=== PATIENT | female | born 1950 | race Caucasian/White ===

== ENCOUNTER 2017-08-24 07:40 | Inpatient (IN) | payer MEDICARE, BC ==
--- NOTE | 2017-08-24 08:18 | EDM.PDOC ---
ED HPI GENERAL MEDICAL PROBLEM - General Chief Complaint: Abdominal Pain Stated Complaint: Abdominal pain Time Seen by Provider: 08/24/17 07:50 Source of Information: Reports: Patient History Limitations: Reports: No Limitations - History of Present Illness INITIAL COMMENTS - FREE TEXT/NARRATIVE: Patient is a 66-year-old female who states that yesterday she developed some left-sided discomfort but around 9:00 PM started with some pain went to sleep and woke up this morning with increased pain patient states previous history of diverticulitis says it feels the same worse with movement and better with rest he denies fever. 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 (see below) (Took four stool softeners) Left Middle Abdominal Pain Score (Numeric/FACES): 10 - Related Data Allergies Allergy/AdvReac Type Severity Reaction Status Date / Time Antihistamines - Alkylamine Allergy Agitation Verified 08/24/17 07:41 Antihistamines - Ethanolamine Allergy Agitation Verified 08/24/17 07:41 Antihistamines - Allergy Agitation Verified 08/24/17 07:41 Ethylenediamine Antihistamines - Piperazine Allergy Agitation Verified 08/24/17 07:41 Antihistamines - Piperidine Allergy Agitation Verified 08/24/17 07:41 Home Meds: Home Meds Pregabalin [Lyrica] 100 mg PO TID 11/05/13 [History] Venlafaxine [Effexor] 300 mg PO DAILY 11/05/13 [History] amLODIPine/Benazepril [Lotrel 5-10 MG] 1 tab PO DAILY 11/05/13 [History] tiZANidine [Zanaflex] 4 mg PO BID 11/05/13 [History] Celecoxib [Celebrex] 200 mg PO DAILY PRN 12/29/13 [History] Cholecalciferol (Vitamin D3) [Vitamin D3] 1,000 units PO DAILY 12/29/13 [History ] Modafinil [Provigil] 100 mg PO DAILY PRN 12/29/13 [History] Vitamin B Complex 1 cap PO DAILY 11/04/16 [History] Sennosides [Senna] 2 tab PO BEDTIME 08/24/17 [History] Past Medical History HEENT History: Reports: Other (See Below) Other HEENT History: Wears glasses Cardiovascular History: Reports: Hypertension Gastrointestinal History: Reports: Bowel Obstruction, Hemorrhoids Musculoskeletal History: Reports: Osteoarthritis Neurological History: Reports: MS Other Neuro History: Diagnosed in 1999 Psychiatric History: Reports: Depression Hematologic History: Reports: Blood Transfusion(s) Oncologic (Cancer) History: Reports: Cervix - Infectious Disease History Infectious Disease History: Reports: Chicken Pox, Measles, Mumps - Past Surgical History Female Surgical History: Reports: Section, Hysterectomy Social & Family History - Tobacco Use Smoking Status *Q: Former Smoker Years of Tobacco use: 20 Packs/Tins Daily: 0.2 Used Tobacco, but Quit: Yes Month Tobacco Last Used: in 1991 Second Hand Smoke Exposure: No - Caffeine Use Caffeine Use: Reports: Coffee Caffeine Use Comment: 2 cups daily - Alcohol Use Days Per Week of Alcohol Use: 3 Number of Drinks Per Day: 1 Total Drinks Per Week: 3 - Recreational Drug Use Recreational Drug Use: No ED ROS GENERAL - Review of Systems Review Of Systems: See Below Constitutional: Reports: Weakness (Secondary to MS) HEENT: Reports: No Symptoms Respiratory: Reports: No Symptoms Cardiovascular: Reports: No Symptoms Endocrine: Reports: No Symptoms GI/Abdominal: Reports: Abdominal Pain, Constipation : Reports: No Symptoms Musculoskeletal: Reports: No Symptoms Skin: Reports: No Symptoms Neurological: Reports: No Symptoms Psychiatric: Reports: No Symptoms Hematologic/Lymphatic: Reports: No Symptoms Immunologic: Reports: No Symptoms ED EXAM, GI/ABD - Physical Exam Exam: See Below Exam Limited By: No Limitations General Appearance: Alert, WD/WN, Moderate Distress Eyes: Bilateral: Normal Appearance, EOMI Ears: Normal External Exam, Normal Canal, Hearing Grossly Normal, Normal TMs Nose: Normal Inspection, Normal Mucosa, No Blood Throat/Mouth: Normal Inspection, Normal Lips, Normal Teeth, Normal Gums, Normal Oropharynx, Normal Voice, No Airway Compromise Head: Atraumatic, Normocephalic Neck: Normal Inspection, Supple, Non-Tender, Full Range of Motion Respiratory/Chest: No Respiratory Distress, Lungs Clear, Normal Breath Sounds, No Accessory Muscle Use, Chest Non-Tender Cardiovascular: Normal Peripheral Pulses, Regular Rate, Rhythm, No Edema, No Gallop, No JVD, No Murmur, No Rub GI/Abdominal Exam: Normal Bowel Sounds, Soft, Tender (Female) Exam: Deferred Rectal (Female) Exam: Deferred Back Exam: Normal Inspection, Full Range of Motion, NT Extremities: Normal Inspection, Normal Range of Motion, Non-Tender, Normal Capillary Refill, No Pedal Edema Neurological: Alert, Oriented, CN II-XII Intact, Abnormal Gait Psychiatric: Normal Affect, Normal Mood Skin Exam: Warm, Dry, Intact, Normal Color, No Rash Lymphatic: No Adenopathy Course - Vital Signs Last Recorded V/S: Last Vital Signs Temp 98.1 F 08/24/17 09:35 Pulse 88 08/24/17 09:35 Resp 18 08/24/17 09:35 BP 155/87 H 08/24/17 09:35 Pulse Ox 98 08/24/17 09:35 - Orders/Labs/Meds Orders: Active Orders 24 hr Category Date Time Status Abdomen Pelvis w Cont [CT] Stat Exams 08/24/17 08:24 Taken Labs: Laboratory Tests 08/24/17 08/24/17 Range/Units 07:55 07:55 WBC 7.8 (4.0-10.2) K/uL RBC 4.15 (3.77-5.09) M/uL Hgb 13.3 (11.7-15.5) g/dL Hct 38.7 (34.0-46.0) % MCV 93.3 (84.0-98.0) fL MCH 32.0 (28.2-33.3) pg MCHC 34.4 (31.7-36.0) g/dL RDW 13.0 (11.2-14.1) % Plt Count 177 D (150-350) K/uL Neut % (Auto) 80.9 H (45.0-80.0) % Lymph % (Auto) 10.6 (10.0-50.0) % [place] % (Auto) 7.2 (2.0-14.0) % Eos % (Auto) 0.9 (0.0-5.0) % Baso % (Auto) 0.4 (0.0-2.0) % Neut # (Auto) 6.29 (1.40-7.00) K/uL Lymph # (Auto) 0.82 (0.50-3.50) K/uL [place] # (Auto) 0.56 (0.00-1.00) K/uL Eos # (Auto) 0.07 (0.00-0.50) K/uL Baso # (Auto) 0.03 (0.00-0.20) K/uL Sodium 138 (136-145) mmol/L Potassium 3.8 (3.5-5.1) mmol/L Chloride 104 (98-107) mmol/L Carbon Dioxide 24.1 (21.0-32.0) mmol/L BUN 18 (7-18) mg/dL Creatinine 0.84 (0.51-1.17) mg/dL Est Cr Clr Drug Dosing 56.12 mL/min Estimated GFR (MDRD) > 60 mL/min Glucose 115 H (74-106) mg/dL Calcium 8.5 (8.5-10.1) mg/dL Total Bilirubin 0.5 (0.2-1.0) mg/dL AST 20 (15-37) U/L ALT 34 (12-78) U/L Alkaline Phosphatase 98 (46-116) IU/L Total Protein 6.9 (6.4-8.2) g/dL Albumin 3.6 (3.4-5.0) g/dL Meds: Medications Discontinued Medications Generic Name Dose Route Start Last Admin Trade Name Freq PRN Reason Stop Dose Admin Iopamidol 100 ml 08/24/17 08:56 08/24/17 10:24 Isovue-300 (61%) IVPUSH 08/24/17 08:57 100 ml ONETIME ONE Administration Departure - Departure Time of Disposition: 11:13 Disposition: Admitted As Inpatient 65 Condition: Fair Clinical Impression: Diverticulitis large intestine - Discharge Information Referrals: Laisha Quiroz NP [Primary Care Provider] - Forms: ED Department Discharge Care Plan Goals: Patient will be admitted for IV antibiotics and pain control Use ER note as admission H&P - Problem List & Annotations (1) Diverticulosis of colon SNOMED Code(s): 822873946 Code(s): K57.30 - DVRTCLOS OF LG INT W/O PERFORATION OR ABSCESS W/O BLEEDING Status: Acute Current Visit: Yes Annotation/Comment:: CT scan of abdomen revealed diverticulosis of descending colon at this time patient will be admitted for IV antibiotics radiologist I commended the patient should be follow-up with a colonoscopy secondary to edema seen on CT scan - Problem List Review Problem List Initiated/Reviewed/Updated: Yes - My Orders Last 24 Hours: My Active Orders 08/24/17 08:24 Abdomen Pelvis w Cont [CT] Stat - Assessment/Plan Admission H&P: Please use this note as an admission H&P Last 24 Hours: My Active Orders 08/24/17 08:24 Abdomen Pelvis w Cont [CT] Stat Assessment:: Diverticulitis of descending colon Plan: Patient will be admitted for pain control and IV antibiotics Please use ER note as admitting H&P
[2017-08-24 08:26] LABS: CHLORIDE,CL 104 mmol/L (98-107); SODIUM,NA 138 mmol/L (136-145)
[2017-08-24] MEDS ORDERED: Iopamidol 612 MG/ML 100 ML Bottle IVPUSH ONE (08:56)
[2017-08-24] MEDS ORDERED: MODAFINIL 100 MG PO PRN (11:54)
[2017-08-24] MEDS ORDERED: metroNIDAZOLE/Normal Saline 500 MG in Premix Bag 1 BAG IV SCH (12:00)
[2017-08-24] MEDS ORDERED: HYDROmorphone 1 MG/ML Syringe IVPUSH PRN (12:14)
[2017-08-24] MEDS: Sodium Chloride 0.9% 1,000 ML IV SCH ×2 (12:29→22:19)
[2017-08-24] MEDS: Ciprofloxacin in D5W 400 MG in Premix Bag 1 BAG IV SCH ×4 (12:35→20:04)
[2017-08-24] MEDS: Pregabalin 25 MG Cap PO SCH ×2 (12:42→17:51)
[2017-08-24] MEDS: Enoxaparin 40 MG/0.4 ML Syringe SUBCUT SCH (12:43)
[2017-08-24] MEDS: metroNIDAZOLE/Normal Saline 500 MG in Premix Bag 1 BAG IV SCH ×2 (13:50→22:18)
[2017-08-24] MEDS: Acetaminophen 325 MG Tab PO PRN ×2 (16:29→20:05)
[2017-08-24] MEDS ORDERED: Celecoxib 100 MG Cap PO PRN (18:00)
[2017-08-24] MEDS ORDERED: Montelukast 10 MG Tab PO SCH ×2 (18:15→20:00)
[2017-08-24] MEDS: Sennosides 8.6 MG Tab PO SCH ×2 (20:05→20:11)
[2017-08-25] MEDS: Acetaminophen 325 MG Tab PO PRN ×2 (01:43→05:12)
[2017-08-25] MEDS: metroNIDAZOLE/Normal Saline 500 MG in Premix Bag 1 BAG IV SCH (05:13)
[2017-08-25] MEDS: Sodium Chloride 0.9% 1,000 ML IV SCH (05:13)
[2017-08-25] MEDS: Pregabalin 25 MG Cap PO SCH ×2 (07:52→11:28)
[2017-08-25] MEDS: Enoxaparin 40 MG/0.4 ML Syringe SUBCUT SCH (07:53)
[2017-08-25] MEDS: Ciprofloxacin in D5W 400 MG in Premix Bag 1 BAG IV SCH ×2 (07:54)
[2017-08-25] MEDS ORDERED: Benazepril 10 MG Tab PO SCH (08:00)
[2017-08-25] MEDS ORDERED: Cholecalciferol (Vitamin D3) 1,000 Unit Tab PO SCH (08:00)
[2017-08-25] MEDS ORDERED: VITAMIN B COMPLEX PO SCH (08:00)
[2017-08-25] MEDS ORDERED: Venlafaxine 75 MG Cap.ER PO SCH (08:00)
[2017-08-25] MEDS ORDERED: amLODIPine 5 MG Tab PO SCH (08:00)
[2017-08-25 08:03] LABS: CHLORIDE,CL 107 mmol/L (98-107); SODIUM,NA 140 mmol/L (136-145)
[2017-08-25 11:28] VITALS: BP 120/72
--- NOTE | 2017-08-25 12:49 | PCM.DCSUM1 ---
Discharge Summary - Hospital Course Free Text/Narrative:: Patient is a 66-year-old who was admitted to the hospital with left lower quadrant pain CT showed diverticulitis at this point patient was admitted and treated with IV antibiotics today patient feels much better less pain afebrile and would like to go home - Discharge Data Discharge Date: 08/25/17 Discharge Disposition: Home, Self-Care 01 Condition: Good - Discharge Diagnosis/Problem(s) (1) Diverticulosis of colon SNOMED Code(s): 718186289 ICD Code: K57.30 - DVRTCLOS OF LG INT W/O PERFORATION OR ABSCESS W/O BLEEDING Status: Acute Current Visit: Yes Problem Details: CT scan of abdomen revealed diverticulosis of descending colon at this time patient will be admitted for IV antibiotics radiologist I commended the patient should be follow-up with a colonoscopy secondary to edema seen on CT scan 08/25/17 patient seen today doing much better would like to go home white count down to 4.7 I will discharge her home patient will be followed by her private M.D. and should have a colonoscopy in 1-2 weeks as recommended by radiology - Patient Summary/Data Recommended Follow-up Testing/Procedures: Colonoscopy in the next 2 weeks Hospital Course: Patient was admitted IV antibiotics started patient responded appropriately to IV antibiotics currently pain-free afebrile will discharge home - Patient Instructions Diet: Heart Healthy Diet Activity: As Tolerated Driving: May Drive Today Showering/Bathing: May Shower Notify Provider of: Fever, Increased Pain, Nausea and/or Vomiting - Discharge Plan Prescriptions/Med Rec: Ciprofloxacin HCl [Cipro] 500 mg PO BID 5 Days #14 tablet metroNIDAZOLE [Flagyl] 500 mg PO Q8H 7 Days #20 tablet Home Medications: Home Meds Pregabalin [Lyrica] 100 mg PO TID 11/05/13 [History] Venlafaxine [Effexor] 300 mg PO DAILY 11/05/13 [History] amLODIPine/Benazepril [Lotrel 5-10 MG] 1 tab PO DAILY 11/05/13 [History] tiZANidine [Zanaflex] 4 mg PO BID 11/05/13 [History] Celecoxib [Celebrex] 200 mg PO DAILY PRN 12/29/13 [History] Cholecalciferol (Vitamin D3) [Vitamin D3] 1,000 units PO DAILY 12/29/13 [History ] Modafinil [Provigil] 100 mg PO DAILY PRN 12/29/13 [History] Vitamin B Complex 1 cap PO DAILY 08/24/16 [History] Sennosides [Senna] 2 tab PO BEDTIME 08/24/17 [History] Ciprofloxacin HCl [Cipro] 500 mg PO BID 5 Days #14 tablet 08/25/17 [Rx] metroNIDAZOLE [Flagyl] 500 mg PO Q8H 7 Days #20 tablet 08/25/17 [Rx] Forms: ED Department Discharge Referrals: Laisha Quiroz NP [Primary Care Provider] - - Discharge Summary/Plan Comment DC Time >30 min.: No Discharge Summary/Plan Comment: Patient is a normocephalic atraumatic female 66-year-old who was admitted with diverticulitis started on antibiotic doing well would like to go home Physical exam normocephalic atraumatic eyes PERRLA wears glasses throat clear neck supple chest symmetrical expansion clear to auscultation no Rales rhonchi or wheezing cardiovascular regular rate and rhythm no murmurs no gallops abdomen soft tender to palpation right lower quadrant much improved since admission good bowel sounds no masses extremities full range of motion no edema no cyanosis no clubbing Assessment diverticulitis Plan we will DC her home on Cipro 500 twice a day and Flagyl 500 3 times a day both for 10 days follow-up with primary this week please schedule her for follow -up colonoscopy Send discharge summary to primary - Patient Data Vitals - Most Recent: Last Vital Signs Temp 98.4 F 08/25/17 11:28 Pulse 93 08/25/17 11:28 Resp 15 08/25/17 11:28 BP 120/72 08/25/17 11:28 Pulse Ox 97 08/25/17 11:28 Weight - Most Recent: 177 lb 8 oz I&O - Last 24 hours: Intake & Output 08/24/17 08/25/17 08/25/17 23:59 06:59 14:59 Intake Total 1140 Balance 1140 Lab Results - Last 24 hrs: Laboratory Results - last 24 hr 08/25/17 08/25/17 Range/Units 07:40 07:45 WBC 4.8 (4.0-10.2) K/uL RBC 3.76 L (3.77-5.09) M/uL Hgb 12.1 (11.7-15.5) g/dL Hct 35.4 (34.0-46.0) % MCV 94.1 (84.0-98.0) fL MCH 32.2 (28.2-33.3) pg MCHC 34.2 (31.7-36.0) g/dL RDW 13.0 (11.2-14.1) % Plt Count 163 (150-350) K/uL Neut % (Auto) 66.1 (45.0-80.0) % Lymph % (Auto) 22.2 (10.0-50.0) % [place] % (Auto) 9.4 (2.0-14.0) % Eos % (Auto) 1.9 (0.0-5.0) % Baso % (Auto) 0.4 (0.0-2.0) % Neut # (Auto) 3.15 (1.40-7.00) K/uL Lymph # (Auto) 1.06 (0.50-3.50) K/uL [place] # (Auto) 0.45 (0.00-1.00) K/uL Eos # (Auto) 0.09 (0.00-0.50) K/uL Baso # (Auto) 0.02 (0.00-0.20) K/uL Sodium 140 (136-145) mmol/L Potassium 3.6 (3.5-5.1) mmol/L Chloride 107 (98-107) mmol/L Carbon Dioxide 24.0 (21.0-32.0) mmol/L BUN 7 (7-18) mg/dL Creatinine 0.65 (0.51-1.17) mg/dL Est Cr Clr Drug Dosing 72.52 mL/min Estimated GFR (MDRD) > 60 mL/min Glucose 100 (74-106) mg/dL Calcium 7.7 L (8.5-10.1) mg/dL Med Orders - Current: Current Medications Acetaminophen (Tylenol) 650 mg PO Q4H PRN PRN Reason: Pain Last Admin: 08/25/17 05:12 Dose: 650 mg Amlodipine Besylate (Norvasc) 5 mg PO DAILY [facility] Last Admin: 08/25/17 07:52 Dose: 5 mg Benazepril HCl (Lotensin) 10 mg PO DAILY [facility] Last Admin: 08/25/17 07:53 Dose: 10 mg Celecoxib (Celebrex) 200 mg PO DAILY PRN PRN Reason: PAIN Cholecalciferol (Vitamin D3) 1,000 units PO DAILY [facility] Last Admin: 08/25/17 07:53 Dose: 1,000 units Enoxaparin Sodium (Lovenox) 40 mg SUBCUT DAILY [facility] Last Admin: 08/25/17 07:53 Dose: 40 mg Hydromorphone HCl (Dilaudid) 1 mg IVPUSH Q4H PRN PRN Reason: Pain Last Admin: 08/25/17 01:42 LEAD PRINTER 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: 1 mg Ciprofloxacin/Dextrose 400 mg/ (Premix) 200 mls @ 200 mls/hr IV Q12HR [facility] Last Admin: 08/25/17 07:54 Dose: 200 mls/hr Sodium Chloride (Normal Saline) 1,000 mls @ 150 mls/hr IV ASDIRECTED [facility] Last Admin: 08/25/17 05:13 Dose: 150 mls/hr Metronidazole 500 mg/ Premix 100 mls @ 100 mls/hr IV Q8H [facility] Last Admin: 08/25/17 05:13 Dose: 100 mls/hr Montelukast Sodium (Singulair) 10 mg PO BEDTIME [facility] Last Admin: 08/24/17 20:05 Dose: 10 mg Pregabalin (Lyrica) 100 mg PO TID [facility] Last Admin: 08/25/17 11:28 Dose: 100 mg Senna (Senna) 17.2 mg PO BEDTIME [facility] Last Admin: 08/24/17 20:11 Dose: Not Given Venlafaxine HCl (Effexor Xr) 300 mg PO DAILY [facility] Last Admin: 08/25/17 07:51 Dose: 300 mg Discontinued Medications Metronidazole 500 mg/ Premix 100 mls @ 100 mls/hr IV Q8H [facility] Last Admin: 08/24/17 12:40 Dose: Not Given Iopamidol (Isovue-300 (61%)) 100 ml IVPUSH ONETIME ONE Stop: 08/24/17 08:57 Last Admin: 08/24/17 10:24 Dose: 100 ml Montelukast Sodium (Singulair) 10 mg PO BEDTIME [facility] Last Admin: 08/24/17 18:29 Dose: Not Given Non-Formulary Medication (Modafinil) 100 mg PO DAILY PRN PRN Reason: Fatiuge Non-Formulary Medication (Vitamin B Complex [Vitamin B Complex]) 1 cap PO DAILY ROSE MARIE - Exam General: Reports: Alert, Oriented HEENT: Reports: Pupils Equal, Pupils Reactive, EOMI, Mucous Membr. Moist/[place] Neck: Reports: Supple Lungs: Reports: Clear to Auscultation, Normal Respiratory Effort Cardiovascular: Reports: Regular Rate, Regular Rhythm GI/Abdominal Exam: Soft, Rebound, Tender (Female) Exam: Deferred Rectal (Female) Exam: Deferred Back Exam: Reports: Normal Inspection, Full Range of Motion Extremities: Normal Inspection, Normal Range of Motion, Non-Tender, No Pedal Edema, Normal Capillary Refill Skin: Reports: Warm, Dry, Intact Psy/Mental Status: Reports: Alert, Normal Affect, Normal Mood *Q Meaningful Use (DIS) - VTE *Q VTE Criteria *Q: - Stroke *Q Stroke Criteria *Q: - AMI *Q AMI Criteria *Q:
== END 2017-08-25 13:35 | disposition home or self-care (01) | DRG 392 ==
LOC: LL.ED 07:40 → LL.MS 11:05 → UNDOADMIN 11:05 → LL.MS 11:56 → UNDODISIN 08-25 13:35
PROVIDERS: ADMIT Family Medicine; ATTEND Family Medicine
DX: K57.30 Diverticulosis of large intestine without perforation or abscess without bleeding (principal); I10 Essential (primary) hypertension; M19.90 Unspecified osteoarthritis, unspecified site; F32.9 Major depressive disorder, single episode, unspecified; G35 Multiple sclerosis; Z87.891 Personal history of nicotine dependence; Z88.8 Allergy status to other drugs, medicaments and biological substances; Z79.899 Other long term (current) drug therapy
CPT/HCPCS: 36000; 36415; 74177; 80053; 85025; 99285; Q9967 ×2; 80048; A9270-GY; J0744; J1170; J1650; J7030

== ENCOUNTER 2018-12-02 10:24 | Inpatient (IN) | payer MEDICARE, BC ==
[2018-12-02] MEDS ORDERED: Iopamidol 612 MG/ML 100 ML Bottle IVPUSH ONE (12:00)
[2018-12-02] MEDS ORDERED: Ondansetron 4 MG/2 ML SDV IVPUSH PRN (12:00)
[2018-12-02] MEDS: metroNIDAZOLE/Normal Saline 500 MG in Premix Bag 1 BAG IV SCH ×2 (12:57→20:45)
[2018-12-02] MEDS: Sodium Chloride 0.9% 1,000 ML IV SCH (12:57)
[2018-12-02] MEDS: Sodium Chloride 0.9% 10 ML Syringe FLUSH PRN (12:58)
[2018-12-02] MEDS: Ciprofloxacin in D5W 400 MG in Premix Bag 1 BAG IV SCH ×2 (14:03)
--- NOTE | 2018-12-02 14:18 | PCM.HP ---
H&P History of Present Illness - General Date of Service: 12/02/18 Admit Problem/Dx: Admission Diagnosis/Problem Admission Diagnosis/Problem Diverticulitis Source of Information: Patient - History of Present Illness Initial Comments - Free Text/Narative: Patient presents with LLQ abd pain which started yesterday and has gotten much worse today. No fever, history of diverticulitis questioning if this is what is going on. Patient recently had back surgery was on narcotics and had issues with constipation, thought maybe this has caused the flare up. Patient states also eating garden corn which probably caused the pain. Last BM yesterday. Onset of Symptoms: Reports: Gradual Duration of Symptoms: Reports: Getting Worse Location: Reports: Abdomen Quality: Reports: Sharp, Throbbing Severity: Moderate Improves with: Reports: Rest Worsens with: Reports: Movement Associated Symptoms: Reports: Loss of Appetite Left Lower Abdomen Pain Score (Numeric/FACES): 1 - Related Data Allergies/Adverse Reactions: Allergies Allergy/AdvReac Type Severity Reaction Status Date / Time Antihistamines - Alkylamine Allergy Agitation Verified 12/02/18 11:43 Antihistamines - Ethanolamine Allergy Agitation Verified 12/02/18 11:43 Antihistamines - Allergy Agitation Verified 12/02/18 11:43 Ethylenediamine Antihistamines - Piperazine Allergy Agitation Verified 12/02/18 11:43 Antihistamines - Piperidine Allergy Agitation Verified 12/02/18 11:43 bupropion [From Wellbutrin] Allergy Cannot Verified 12/02/18 11:43 Remember sulfamethoxazole Allergy Cannot Verified 12/02/18 11:43 [From Bactrim] Remember trimethoprim [From Bactrim] Allergy Cannot Verified 12/02/18 11:43 Remember Home Medications: Home Meds Pregabalin [Lyrica] 100 mg PO TID 11/05/13 [History] Venlafaxine [Effexor] 300 mg PO DAILY 11/05/13 [History] amLODIPine/Benazepril [Lotrel 5-10 MG] 1 tab PO DAILY 11/05/13 [History] tiZANidine [Zanaflex] 4 mg PO BEDTIME 11/05/13 [History] Celecoxib [Celebrex] 200 mg PO DAILY PRN 12/29/13 [History] Cholecalciferol (Vitamin D3) [Vitamin D3] 1,000 units PO DAILY 12/29/13 [History ] Modafinil [Provigil] 100 mg PO DAILY PRN 12/29/13 [History] Vitamin B Complex 1 cap PO DAILY 08/24/16 [History] Montelukast [Singulair] 10 mg PO BEDTIME tablet 08/25/17 [Rx] EPINEPHrine [Epipen] 1 unit IM ASDIRECTED PRN 12/02/18 [History] Past Medical History HEENT History: Reports: Other (See Below) Other HEENT History: Wears glasses Cardiovascular History: Reports: Hypertension Gastrointestinal History: Reports: Bowel Obstruction, Diverticulosis, Hemorrhoids Musculoskeletal History: Reports: Back Pain, Chronic, Osteoarthritis Neurological History: Reports: MS Other Neuro History: Diagnosed in 1999 Psychiatric History: Reports: Depression Hematologic History: Reports: Blood Transfusion(s) Oncologic (Cancer) History: Reports: Cervix - Infectious Disease History Infectious Disease History: Reports: Chicken Pox, Measles, Mumps - Past Surgical History GI Surgical History: Reports: Colonoscopy Female Surgical History: Reports: Section, Hysterectomy Musculoskeletal Surgical History: Reports: Other (See Below) Other Musculoskeletal Surgeries/Procedures:: Back surgery August 2018, fusion with screws Social & Family History - Family History Cardiac: Reports: Hypertension (mom with HTN) - Caffeine Use Caffeine Use: Reports: Coffee Caffeine Use Comment: 2 cups/day H&P Review of Systems - Review of Systems: Review Of Systems: See Below General: Reports: Weakness, Decreased Appetite HEENT: Reports: No Symptoms Pulmonary: Reports: No Symptoms Cardiovascular: Reports: No Symptoms Gastrointestinal: Reports: Abdominal Pain, Nausea Genitourinary: Reports: No Symptoms Musculoskeletal: Reports: No Symptoms Skin: Reports: No Symptoms Psychiatric: Reports: No Symptoms Neurological: Reports: No Symptoms Hematologic/Lymphatic: Reports: No Symptoms Immunologic: Reports: No Symptoms Exam - Exam Exam: See Below - Vital Signs Vital Signs: Last Vital Signs Temp 98.1 F 12/02/18 11:41 Pulse 84 12/02/18 11:41 Resp 16 12/02/18 11:41 BP 134/97 H 12/02/18 11:41 Pulse Ox 100 12/02/18 11:41 Weight: 170 lb - Exam Quality Assessment: DVT Prophylaxis General: Alert, Oriented, Cooperative HEENT: EOMI, Hearing Intact, Mucosa Moist & [place], Normal Nasal Septum, Posterior Pharynx Clear, Pupils Equal, Pupils Reactive, TMs Clear Neck: Supple, Trachea Midline Lungs: Clear to Auscultation, Normal Respiratory Effort Cardiovascular: Regular Rate, Regular Rhythm GI/Abdominal Exam: Normal Bowel Sounds, Soft, Non-Tender, No Organomegaly, No Distention, No Mass Extremities: Normal Inspection, Normal Range of Motion, Non-Tender, No Pedal Edema, Normal Capillary Refill Peripheral Pulses: 1+: Dorsalis Pedis (L), Dorsalis Pedis (R) Skin: Warm, Dry, Intact Neurological: Cranial Nerves Intact, Reflexes Equal Bilateral Neuro Extensive - Mental Status: Alert, Oriented x3, Normal Mood/Affect, Normal Cognition, Memory Intact Neuro Extensive - Motor, Sensory, Reflexes: CN II-XII Intact, Normal Gait, Normal Reflexes Psychiatric: Alert, Normal Affect, Normal Mood - Problem List (1) Diverticulitis large intestine SNOMED Code(s): 4470544 ICD Code: K57.32 - DVTRCLI OF LG INT W/O PERFORATION OR ABSCESS W/O BLEEDING Status: Acute Current Visit: No Qualifiers: Diverticulitis bleeding: without bleeding Diverticulitis complication: unspecified complication status Qualified Code(s): K57.32 - Diverticulitis of large intestine without perforation or abscess without bleeding (2) HTN, Essential hypertension SNOMED Code(s): 00900418 ICD Code: I10 - ESSENTIAL (PRIMARY) HYPERTENSION Status: Chronic Current Visit: No (3) Multiple sclerosis SNOMED Code(s): 39502027 ICD Code: G35 - MULTIPLE SCLEROSIS Status: Chronic Current Visit: No Problem List Initiated/Reviewed/Updated: Yes Orders Last 24hrs: Active Orders 24 hr Category Date Time Status Patient Status [ADT] Routine ADT 12/02/18 11:41 Active Ambulate [RC] ASDIRECTED Care 12/02/18 11:41 Active Intake and Output [RC] QSHIFT Care 12/02/18 11:43 Active May Shower [RC] ASDIRECTED Care 12/02/18 11:41 Active Oxygen Therapy [RC] PRN Care 12/02/18 11:41 Active Peripheral IV Care [RC] 08,20 Care 12/02/18 11:46 Active Vital Signs [RC] Q4HR Care 12/02/18 11:41 Active Nothing per Oral Now Diet [DIET] Diet 12/02/18 Lunch Active Abdomen 2V AP Flat Upright [CR] Routine Exams 12/02/18 10:20 Taken Abdomen Pelvis w Cont [CT] Stat Exams 12/02/18 11:48 Taken Ciprofloxacin in D5W [Cipro in D5W 400 MG/200 ML] 400 Med 12/02/18 13:00 Active mg Premix Bag 1 bag IV Q12H Enoxaparin [Lovenox] Med 12/03/18 08:00 Active 30 mg SUBCUT DAILY Ondansetron [Zofran] Med 12/02/18 12:00 Active 4 mg IVPUSH Q6H PRN Pregabalin [Lyrica] Med 12/02/18 18:00 Ordered 100 mg PO TID Sodium Chloride 0.9% [Normal Saline] 1,000 ml Med 12/02/18 11:45 Active IV ASDIRECTED Sodium Chloride 0.9% [Saline Flush] Med 12/02/18 11:41 Active 10 ml FLUSH ASDIRECTED PRN Venlafaxine [Effexor] Med 12/03/18 08:00 Ordered 300 mg PO DAILY amLODIPine/Benazepril [Lotrel 5-10 MG] Med 12/03/18 08:00 Ordered 1 tab PO DAILY metroNIDAZOLE/Normal Saline [Flagyl 500 MG in NS 100 ML Med 12/02/18 12:00 Active ] 500 mg Premix Bag 1 bag IV Q8H tiZANidine [Zanaflex] Med 12/02/18 20:00 Ordered 4 mg PO BEDTIME Peripheral IV Insertion Adult [OM.PC] Routine Oth 12/02/18 11:41 Ordered Saline Lock Insert [OM.PC] Routine Oth 12/02/18 11:41 Ordered Resuscitation Status Routine Resus Stat 12/02/18 11:41 Ordered Medication Orders Enoxaparin Sodium (Lovenox) 30 mg SUBCUT DAILY [facility] Sodium Chloride (Normal Saline) 1,000 mls @ 100 mls/hr IV ASDIRECTED [facility] Last Admin: 12/02/18 12:57 Dose: 100 mls/hr Ciprofloxacin/Dextrose 400 mg/ (Premix) 200 mls @ 200 mls/hr IV Q12H [facility] Last Admin: 12/02/18 14:03 Dose: 200 mls/hr Metronidazole 500 mg/ Premix 100 mls @ 100 mls/hr IV Q8H [facility] Last Admin: 12/02/18 12:57 Dose: 100 mls/hr Non-Formulary Medication (Amlodipine/Benazepril [Lotrel 5-10 Mg]) 1 tab PO DAILY [facility] Non-Formulary Medication (Pregabalin [Lyrica]) 100 mg PO TID [facility] Non-Formulary Medication (Venlafaxine [Effexor]) 300 mg PO DAILY [facility] Ondansetron HCl (Zofran) 4 mg IVPUSH Q6H PRN PRN Reason: Nausea/Vomiting Last Admin: 12/02/18 12:58 Dose: 4 mg Sodium Chloride (Saline Flush) 10 ml FLUSH ASDIRECTED PRN PRN Reason: Keep Vein Open Last Admin: 12/02/18 12:58 Dose: 10 ml Tizanidine HCl (Zanaflex) 4 mg PO BEDTIME [facility] Assessment/Plan Comment:: 12/02/2018 Patient is admitted to inpatient services to Dr Bates. CT scan of the abd/ pelvis done, stat read pending. started on IV Cipro and Flagyl. Labs reviewed. Patient agreed to be hospitalized in [place]. recheck labs in the am. Patient requires inpatient 3 day stay due to leukocytosis and elevated CRP. Laisha Quiroz,NUCLEAR MEDICINE SUPERVISOR
[2018-12-02] MEDS: Acetaminophen 325 MG Tab PO PRN (16:26)
[2018-12-02] MEDS ORDERED: Ketorolac 15 MG/ML SDV IVPUSH PRN (17:06)
[2018-12-02] MEDS: Pregabalin 25 MG Cap PO SCH (17:29)
[2018-12-02] MEDS: Pregabalin 75 MG Cap PO SCH (17:29)
[2018-12-02] MEDS ORDERED: Non-Formulary Medication 1 Each (Pregabalin [Lyrica] 100 MG) PO SCH (18:00)
[2018-12-02] MEDS: tiZANidine 4 MG Tab PO SCH (20:45)
[2018-12-03] MEDS: Ciprofloxacin in D5W 400 MG in Premix Bag 1 BAG IV SCH ×4 (00:25→14:17)
[2018-12-03] MEDS: Acetaminophen 325 MG Tab PO PRN (01:03)
[2018-12-03] MEDS: Sodium Chloride 0.9% 1,000 ML IV SCH ×2 (02:51→17:37)
[2018-12-03] MEDS: metroNIDAZOLE/Normal Saline 500 MG in Premix Bag 1 BAG IV SCH ×3 (03:48→19:21)
[2018-12-03] MEDS ORDERED: Benazepril 10 MG Tab PO SCH (08:00)
[2018-12-03] MEDS ORDERED: amLODIPine 5 MG Tab PO SCH (08:00)
[2018-12-03] MEDS ORDERED: VENLAFAXINE 300 MG PO SCH (08:00)
[2018-12-03] MEDS ORDERED: AMLODIPINE PO SCH (08:00)
[2018-12-03] MEDS ORDERED: Enoxaparin 30 MG/0.3 ML Syringe SUBCUT SCH (08:00)
[2018-12-03] MEDS ORDERED: BENAZEPRIL PO SCH (08:00)
[2018-12-03] MEDS: Pregabalin 75 MG Cap PO SCH ×3 (08:21→17:37)
[2018-12-03] MEDS: Venlafaxine 75 MG Cap.ER PO SCH (08:24)
[2018-12-03] MEDS: Pregabalin 25 MG Cap PO SCH ×3 (08:24→17:37)
[2018-12-03] MEDS: Sodium Chloride 0.9% 10 ML Syringe FLUSH PRN ×2 (14:57→19:22)
[2018-12-03] MEDS: tiZANidine 4 MG Tab PO SCH (19:22)
--- NOTE | 2018-12-03 22:31 | PCM.PN ---
- General Info Date of Service: 12/03/18 Admission Dx/Problem (Free Text): Admission Diagnosis/Problem Admission Diagnosis/Problem Diverticulitis Functional Status: Reports: Pain Controlled - Review of Systems General: Reports: Appetite (decreased) HEENT: Reports: No Symptoms Pulmonary: Reports: No Symptoms Cardiovascular: Reports: No Symptoms Gastrointestinal: Reports: Abdominal Pain (improving), Constipation, Decreased Appetite Genitourinary: Reports: No Symptoms Musculoskeletal: Reports: No Symptoms Skin: Reports: No Symptoms Neurological: Reports: Pre-Existing Deficit (multiple sclerosis) Psychiatric: Reports: No Symptoms - Patient Data Vitals - Most Recent: Last Vital Signs Temp 98.5 F 12/03/18 19:54 Pulse 69 12/03/18 19:54 Resp 16 12/03/18 19:54 BP 145/87 H 12/03/18 19:54 Pulse Ox 94 L 12/03/18 19:54 Weight - Most Recent: 170 lb I&O - Last 24 Hours: Intake & Output 12/03/18 12/03/18 12/03/18 06:59 14:59 22:59 Intake Total 1576 1020 3023 Output Total 1050 450 Balance 1576 -30 2573 Lab Results Last 24 Hours: Laboratory Results - last 24 hr 12/03/18 12/03/18 Range/Units 06:45 06:45 WBC 6.3 (4.0-10.2) K/uL RBC 3.89 (3.77-5.09) M/uL Hgb 11.6 L D (11.7-15.5) g/dL Hct 35.7 (34.0-46.0) % MCV 91.8 (84.0-98.0) fL MCH 29.8 (28.2-33.3) pg MCHC 32.5 (31.7-36.0) g/dL RDW 14.4 H (11.2-14.1) % Plt Count 184 D (150-350) K/uL Neut % (Auto) 74.1 (45.0-80.0) % Lymph % (Auto) 16.0 (10.0-50.0) % [place] % (Auto) 7.0 (2.0-14.0) % Eos % (Auto) 2.4 (0.0-5.0) % Baso % (Auto) 0.5 (0.0-2.0) % Neut # (Auto) 4.70 (1.40-7.00) K/uL Lymph # (Auto) 1.01 (0.50-3.50) K/uL [place] # (Auto) 0.44 (0.00-1.00) K/uL Eos # (Auto) 0.15 (0.00-0.50) K/uL Baso # (Auto) 0.03 (0.00-0.20) K/uL Sodium 137 (136-145) mmol/L Potassium 3.9 (3.5-5.1) mmol/L Chloride 101 (98-107) mmol/L Carbon Dioxide 27.1 (21.0-32.0) mmol/L BUN 16 (7-18) mg/dL Creatinine 0.95 (0.51-1.17) mg/dL Est Cr Clr Drug Dosing 49.30 mL/min Estimated GFR (MDRD) 58 mL/min Glucose 96 (74-106) mg/dL Calcium 8.3 L (8.5-10.1) mg/dL Total Bilirubin 0.2 (0.2-1.0) mg/dL AST 14 L (15-37) U/L ALT 29 (12-78) U/L Alkaline Phosphatase 98 (46-116) IU/L C-Reactive Protein 20.3 H (<=0.9) mg/dL Total Protein 6.4 (6.4-8.2) g/dL Albumin 2.9 L (3.4-5.0) g/dL Med Orders - Current: Current Medications Acetaminophen (Tylenol) 650 mg PO Q4H PRN PRN Reason: Pain Last Admin: 12/03/18 01:03 Dose: 650 mg Sodium Chloride (Normal Saline) 1,000 mls @ 100 mls/hr IV ASDIRECTED [facility] Last Admin: 12/03/18 17:37 Dose: 100 mls/hr Ciprofloxacin/Dextrose 400 mg/ (Premix) 200 mls @ 200 mls/hr IV Q12H [facility] Last Admin: 12/03/18 14:17 Dose: 200 mls/hr Metronidazole 500 mg/ Premix 100 mls @ 100 mls/hr IV Q8H [facility] Last Admin: 12/03/18 19:21 Dose: 100 mls/hr Ketorolac Tromethamine (Toradol) 15 mg IVPUSH Q6H PRN PRN Reason: Pain Stop: 12/07/18 17:06 Ondansetron HCl (Zofran) 4 mg IVPUSH Q6H PRN PRN Reason: Nausea/Vomiting Last Admin: 12/02/18 12:58 Dose: 4 mg Pregabalin (Lyrica) 25 mg PO TID [facility] Last Admin: 12/03/18 17:37 Dose: 25 mg Pregabalin (Lyrica) 75 mg PO TID [facility] Last Admin: 12/03/18 17:37 Dose: 75 mg Sodium Chloride (Saline Flush) 10 ml FLUSH ASDIRECTED PRN PRN Reason: Keep Vein Open Last Admin: 12/03/18 19:22 Dose: 10 ml Tizanidine HCl (Zanaflex) 4 mg PO BEDTIME [facility] Last Admin: 12/03/18 19:22 Dose: 4 mg Venlafaxine HCl (Effexor Xr) 300 mg PO DAILY [facility] Last Admin: 12/03/18 08:24 Dose: 300 mg Discontinued Medications Amlodipine Besylate (Norvasc) 5 mg PO DAILY [facility] Last Admin: 12/03/18 08:23 Dose: Not Given Benazepril HCl (Lotensin) 10 mg PO DAILY [facility] Last Admin: 12/03/18 08:23 Dose: Not Given Enoxaparin Sodium (Lovenox) 30 mg SUBCUT DAILY [facility] Iopamidol (Isovue-300 (61%)) 100 ml IVPUSH ONETIME ONE Stop: 12/02/18 12:01 Last Admin: 12/02/18 12:36 Dose: 100 ml Non-Formulary Medication (Amlodipine/Benazepril [Lotrel 5-10 Mg]) 1 tab PO DAILY [facility] Non-Formulary Medication (Pregabalin [Lyrica]) 100 mg PO TID [facility] Non-Formulary Medication (Venlafaxine [Effexor]) 300 mg PO DAILY [facility] - Exam General: Alert, Cooperative, No Acute Distress HEENT: Mucous Membr. Moist/[place] Neck: Trachea Midline, No JVD Lungs: Clear to Auscultation, Normal Respiratory Effort Cardiovascular: Regular Rate, Regular Rhythm GI/Abdominal Exam: Normal Bowel Sounds, Soft, No Distention, Tender (LLL, no rebound) (Female) Exam: Deferred Back Exam: Normal Inspection Extremities: Normal Inspection, Non-Tender, No Pedal Edema Skin: Warm, Dry, Intact Neurological: No New Focal Deficit Psy/Mental Status: Alert, Normal Affect, Normal Mood - Problem List & Annotations (1) Adnexal cyst SNOMED Code(s): 08789974249814 Code(s): N94.9 - UNSP COND ASSOC W FEMALE GENITAL ORGANS AND MENSTRUAL CYCLE Status: Acute Priority: High Current Visit: Yes (2) Diverticulitis large intestine SNOMED Code(s): 8019541 Code(s): K57.32 - DVTRCLI OF LG INT W/O PERFORATION OR ABSCESS W/O BLEEDING Status: Acute Current Visit: No Qualifiers: Diverticulitis bleeding: without bleeding Diverticulitis complication: unspecified complication status Qualified Code(s): K57.32 - Diverticulitis of large intestine without perforation or abscess without bleeding (3) Diverticulosis of colon SNOMED Code(s): 935293659, 651507397 Code(s): K57.30 - DVRTCLOS OF LG INT W/O PERFORATION OR ABSCESS W/O BLEEDING Status: Acute Current Visit: No (4) Orthostatic hypotension SNOMED Code(s): 74686067 Code(s): I95.1 - ORTHOSTATIC HYPOTENSION Status: Acute Current Visit: No (5) Bladder muscle dysfunction - overactive SNOMED Code(s): 611825528 Code(s): N32.81 - OVERACTIVE BLADDER Status: Chronic Current Visit: No (6) Chronic pain syndrome SNOMED Code(s): 762397543 Code(s): G89.4 - CHRONIC PAIN SYNDROME Status: Chronic Current Visit: No (7) HTN, Essential hypertension SNOMED Code(s): 22746227 Code(s): I10 - ESSENTIAL (PRIMARY) HYPERTENSION Status: Chronic Current Visit: No (8) Mild depression SNOMED Code(s): 700606430 Code(s): F32.0 - MAJOR DEPRESSIVE DISORDER, SINGLE EPISODE, MILD Status: Chronic Current Visit: No (9) Multiple sclerosis SNOMED Code(s): 82556993 Code(s): G35 - MULTIPLE SCLEROSIS Status: Chronic Priority: Low Current Visit: No - Problem List Review Problem List Initiated/Reviewed/Updated: Yes - Plan Plan:: 12/02/2018 Patient is admitted to inpatient services to Dr Bates. CT scan of the abd/ pelvis done, stat read pending. started on IV Cipro and Flagyl. Labs reviewed. Patient agreed to be hospitalized in [place]. recheck labs in the am. Patient requires inpatient 3 day stay due to leukocytosis and elevated CRP. Laisha Quiroz,FULL STACK PHP DEVELOPER 12/03/18 Paulo Guillen MD The pain is better today. Continue IV antibiotics, IV fluids, and pelvic ultrasound tomorrow.
[2018-12-04] MEDS: Ciprofloxacin in D5W 400 MG in Premix Bag 1 BAG IV SCH ×4 (01:56→13:15)
[2018-12-04] MEDS: metroNIDAZOLE/Normal Saline 500 MG in Premix Bag 1 BAG IV SCH ×3 (03:01→19:37)
[2018-12-04] MEDS: Sodium Chloride 0.9% 1,000 ML IV SCH (03:02)
[2018-12-04] MEDS: Acetaminophen 325 MG Tab PO PRN (03:12)
[2018-12-04] MEDS: Pregabalin 75 MG Cap PO SCH ×3 (06:59→17:24)
[2018-12-04] MEDS: Venlafaxine 75 MG Cap.ER PO SCH (06:59)
[2018-12-04] MEDS: Pregabalin 25 MG Cap PO SCH ×3 (06:59→17:24)
[2018-12-04 07:52] LABS: CHLORIDE,CL 103 mmol/L (98-107); SODIUM,NA 138 mmol/L (136-145)
[2018-12-04] MEDS: amLODIPine 5 MG Tab PO SCH (13:14)
[2018-12-04] MEDS: Benazepril 10 MG Tab PO SCH (13:14)
--- NOTE | 2018-12-04 16:17 | PCM.PN ---
- General Info Date of Service: 12/04/18 Admission Dx/Problem (Free Text): Admission Diagnosis/Problem Admission Diagnosis/Problem Diverticulitis Functional Status: Reports: Pain Controlled - Review of Systems General: Reports: No Symptoms HEENT: Reports: No Symptoms Pulmonary: Reports: No Symptoms Cardiovascular: Reports: No Symptoms Gastrointestinal: Reports: Abdominal Pain (markedly improved), Constipation Genitourinary: Reports: No Symptoms Musculoskeletal: Reports: No Symptoms Skin: Reports: No Symptoms Neurological: Reports: No Symptoms Psychiatric: Reports: No Symptoms - Patient Data Vitals - Most Recent: Last Vital Signs Temp 98.8 F 12/04/18 16:00 Pulse 71 12/04/18 16:00 Resp 16 12/04/18 16:00 BP 165/75 H 12/04/18 16:00 Pulse Ox 96 12/04/18 12:00 Weight - Most Recent: 170 lb I&O - Last 24 Hours: Intake & Output 12/04/18 12/04/18 12/04/18 06:59 14:59 22:59 Intake Total 300 1440 Output Total 1000 1050 250 Balance -700 390 -250 Lab Results Last 24 Hours: Laboratory Results - last 24 hr 12/04/18 12/04/18 Range/Units 07:15 07:15 WBC 4.3 (4.0-10.2) K/uL RBC 3.69 L (3.77-5.09) M/uL Hgb 11.1 L (11.7-15.5) g/dL Hct 34.0 (34.0-46.0) % MCV 92.1 (84.0-98.0) fL MCH 30.1 (28.2-33.3) pg MCHC 32.6 (31.7-36.0) g/dL RDW 14.1 (11.2-14.1) % Plt Count 185 (150-350) K/uL Neut % (Auto) 62.4 (45.0-80.0) % Lymph % (Auto) 25.4 (10.0-50.0) % [place] % (Auto) 8.7 (2.0-14.0) % Eos % (Auto) 2.6 (0.0-5.0) % Baso % (Auto) 0.9 (0.0-2.0) % Neut # (Auto) 2.66 (1.40-7.00) K/uL Lymph # (Auto) 1.08 (0.50-3.50) K/uL [place] # (Auto) 0.37 (0.00-1.00) K/uL Eos # (Auto) 0.11 (0.00-0.50) K/uL Baso # (Auto) 0.04 (0.00-0.20) K/uL Sodium 138 (136-145) mmol/L Potassium 3.9 (3.5-5.1) mmol/L Chloride 103 (98-107) mmol/L Carbon Dioxide 28.7 (21.0-32.0) mmol/L BUN 7 (7-18) mg/dL Creatinine 0.70 (0.51-1.17) mg/dL Est Cr Clr Drug Dosing 66.90 mL/min Estimated GFR (MDRD) > 60 mL/min Glucose 101 (74-106) mg/dL Calcium 7.8 L (8.5-10.1) mg/dL Total Bilirubin 0.2 (0.2-1.0) mg/dL AST 14 L (15-37) U/L ALT 30 (12-78) U/L Alkaline Phosphatase 87 (46-116) IU/L C-Reactive Protein 8.8 H (<=0.9) mg/dL Total Protein 6.1 L (6.4-8.2) g/dL Albumin 2.8 L (3.4-5.0) g/dL Med Orders - Current: Current Medications Acetaminophen (Tylenol) 650 mg PO Q4H PRN PRN Reason: Pain Last Admin: 12/04/18 03:12 Dose: 650 mg Amlodipine Besylate (Norvasc) 5 mg PO DAILY [facility] Last Admin: 12/04/18 13:14 Dose: 5 mg Benazepril HCl (Lotensin) 10 mg PO DAILY [facility] Last Admin: 12/04/18 13:14 Dose: 10 mg Ciprofloxacin/Dextrose 400 mg/ (Premix) 200 mls @ 200 mls/hr IV Q12H [facility] Last Admin: 12/04/18 13:15 Dose: 200 mls/hr Metronidazole 500 mg/ Premix 100 mls @ 100 mls/hr IV Q8H [facility] Last Admin: 12/04/18 11:48 Dose: 100 mls/hr Ketorolac Tromethamine (Toradol) 15 mg IVPUSH Q6H PRN PRN Reason: Pain Stop: 12/07/18 17:06 Ondansetron HCl (Zofran) 4 mg IVPUSH Q6H PRN PRN Reason: Nausea/Vomiting Last Admin: 12/02/18 12:58 Dose: 4 mg Pregabalin (Lyrica) 25 mg PO TID [facility] Last Admin: 12/04/18 11:50 Dose: 25 mg Pregabalin (Lyrica) 75 mg PO TID [facility] Last Admin: 12/04/18 11:50 Dose: 75 mg Senna/Docusate Sodium (Senna Plus) 2 tab PO BEDTIME [facility] Sodium Chloride (Saline Flush) 10 ml FLUSH ASDIRECTED PRN PRN Reason: Keep Vein Open Last Admin: 12/03/18 19:22 Dose: 10 ml Tizanidine HCl (Zanaflex) 4 mg PO BEDTIME [facility] Last Admin: 12/03/18 19:22 Dose: 4 mg Venlafaxine HCl (Effexor Xr) 300 mg PO DAILY [facility] Last Admin: 12/04/18 06:59 Dose: 300 mg Discontinued Medications Amlodipine Besylate (Norvasc) 5 mg PO DAILY [facility] Last Admin: 12/03/18 08:23 Dose: Not Given Benazepril HCl (Lotensin) 10 mg PO DAILY [facility] Last Admin: 12/03/18 08:23 Dose: Not Given Enoxaparin Sodium (Lovenox) 30 mg SUBCUT DAILY [facility] Sodium Chloride (Normal Saline) 1,000 mls @ 100 mls/hr IV ASDIRECTED [facility] Last Admin: 12/04/18 03:02 Dose: 100 mls/hr Iopamidol (Isovue-300 (61%)) 100 ml IVPUSH ONETIME ONE Stop: 12/02/18 12:01 Last Admin: 12/02/18 12:36 Dose: 100 ml Non-Formulary Medication (Amlodipine/Benazepril [Lotrel 5-10 Mg]) 1 tab PO DAILY [facility] Non-Formulary Medication (Pregabalin [Lyrica]) 100 mg PO TID [facility] Non-Formulary Medication (Venlafaxine [Effexor]) 300 mg PO DAILY [facility] Senna/Docusate Sodium (Senna Plus) 3 tab PO BEDTIME [facility] - Exam General: Alert, Cooperative, No Acute Distress HEENT: Mucous Membr. Moist/[place] Neck: Trachea Midline, No JVD Lungs: Clear to Auscultation, Normal Respiratory Effort Cardiovascular: Regular Rate, Regular Rhythm GI/Abdominal Exam: Normal Bowel Sounds, Soft, Non-Tender, No Distention (Female) Exam: Deferred Back Exam: Normal Inspection Extremities: Normal Inspection, Non-Tender, No Pedal Edema Skin: Warm, Dry, Intact Neurological: No New Focal Deficit Psy/Mental Status: Alert, Normal Affect, Normal Mood - Problem List & Annotations (1) Adnexal cyst SNOMED Code(s): 99270996096548 Code(s): N94.9 - UNSP COND ASSOC W FEMALE GENITAL ORGANS AND MENSTRUAL CYCLE Status: Acute Priority: High Current Visit: Yes (2) Diverticulitis large intestine SNOMED Code(s): 2176031 Code(s): K57.32 - DVTRCLI OF LG INT W/O PERFORATION OR ABSCESS W/O BLEEDING Status: Acute Current Visit: No Qualifiers: Diverticulitis bleeding: without bleeding Diverticulitis complication: unspecified complication status Qualified Code(s): K57.32 - Diverticulitis of large intestine without perforation or abscess without bleeding (3) Diverticulosis of colon SNOMED Code(s): 714149481, 912289472 Code(s): K57.30 - DVRTCLOS OF LG INT W/O PERFORATION OR ABSCESS W/O BLEEDING Status: Acute Current Visit: No (4) Orthostatic hypotension SNOMED Code(s): 97873900 Code(s): I95.1 - ORTHOSTATIC HYPOTENSION Status: Acute Current Visit: No (5) Bladder muscle dysfunction - overactive SNOMED Code(s): 581887869 Code(s): N32.81 - OVERACTIVE BLADDER Status: Chronic Current Visit: No (6) Chronic pain syndrome SNOMED Code(s): 844798069 Code(s): G89.4 - CHRONIC PAIN SYNDROME Status: Chronic Current Visit: No (7) HTN, Essential hypertension SNOMED Code(s): 90642977 Code(s): I10 - ESSENTIAL (PRIMARY) HYPERTENSION Status: Chronic Current Visit: No (8) Mild depression SNOMED Code(s): 872697194 Code(s): F32.0 - MAJOR DEPRESSIVE DISORDER, SINGLE EPISODE, MILD Status: Chronic Current Visit: No (9) Multiple sclerosis SNOMED Code(s): 95874389 Code(s): G35 - MULTIPLE SCLEROSIS Status: Chronic Priority: Low Current Visit: No - Problem List Review Problem List Initiated/Reviewed/Updated: Yes - My Orders Last 24 Hours: My Active Orders 12/04/18 12:30 Benazepril [Lotensin] 10 mg PO DAILY amLODIPine [Norvasc] 5 mg PO DAILY 12/04/18 20:00 Docusate Sodium/Sennosides [Senna Plus] 2 tab PO BEDTIME 12/04/18 Dinner Soft Diet [DIET] - Plan Plan:: 12/02/2018 Patient is admitted to inpatient services to Dr Bates. CT scan of the abd/ pelvis done, stat read pending. started on IV Cipro and Flagyl. Labs reviewed. Patient agreed to be hospitalized in [place]. recheck labs in the am. Patient requires inpatient 3 day stay due to leukocytosis and elevated CRP. Laisha Quiroz,SHIP MATE 12/03/18 Paulo Guillen MD The pain is better today. Continue IV antibiotics, IV fluids, and pelvic ultrasound tomorrow. 12/04/18 Paulo Guillen MD Continues to improve. No bm yet. Advance diet, continue IV antibiotics.
[2018-12-04] MEDS: tiZANidine 4 MG Tab PO SCH (19:40)
[2018-12-04] MEDS: Sodium Chloride 0.9% 10 ML Syringe FLUSH PRN (19:40)
[2018-12-05] MEDS: Ciprofloxacin in D5W 400 MG in Premix Bag 1 BAG IV SCH ×2 (01:59)
[2018-12-05] MEDS: Sodium Chloride 0.9% 10 ML Syringe FLUSH PRN ×4 (02:00→12:07)
[2018-12-05] MEDS: metroNIDAZOLE/Normal Saline 500 MG in Premix Bag 1 BAG IV SCH ×2 (02:59→12:07)
[2018-12-05 07:28] LABS: CHLORIDE,CL 104 mmol/L (98-107); SODIUM,NA 139 mmol/L (136-145)
[2018-12-05] MEDS: Venlafaxine 75 MG Cap.ER PO SCH (07:32)
[2018-12-05] MEDS: Pregabalin 25 MG Cap PO SCH ×2 (07:32→12:07)
[2018-12-05] MEDS: amLODIPine 5 MG Tab PO SCH (07:33)
[2018-12-05] MEDS: Pregabalin 75 MG Cap PO SCH ×2 (07:33→12:07)
[2018-12-05] MEDS: Benazepril 10 MG Tab PO SCH (07:33)
[2018-12-05 13:17] VITALS: BP 183/92
--- NOTE | 2018-12-05 16:30 | PCM.PN ---
- General Info Date of Service: 12/05/18 Admission Dx/Problem (Free Text): Admission Diagnosis/Problem Admission Diagnosis/Problem Diverticulitis Functional Status: Reports: Pain Controlled - Review of Systems General: Reports: No Symptoms HEENT: Reports: No Symptoms Pulmonary: Reports: No Symptoms Cardiovascular: Reports: No Symptoms Gastrointestinal: Reports: No Symptoms, Other (she did have a small bowel movement) Genitourinary: Reports: No Symptoms Musculoskeletal: Reports: No Symptoms Skin: Reports: No Symptoms Neurological: Reports: No Symptoms Psychiatric: Reports: No Symptoms - Patient Data Vitals - Most Recent: Last Vital Signs Temp 98.9 F 12/05/18 12:00 Pulse 79 12/05/18 12:00 Resp 20 12/05/18 12:00 BP 183/92 H 12/05/18 12:00 Pulse Ox 96 12/05/18 12:00 Weight - Most Recent: 170 lb I&O - Last 24 Hours: Intake & Output 12/05/18 12/05/18 12/05/18 06:59 14:59 22:59 Intake Total 240 Output Total 550 Balance -550 240 Lab Results Last 24 Hours: Laboratory Results - last 24 hr 12/05/18 12/05/18 Range/Units 07:00 07:00 WBC 4.6 (4.0-10.2) K/uL RBC 3.89 (3.77-5.09) M/uL Hgb 11.5 L (11.7-15.5) g/dL Hct 35.2 (34.0-46.0) % MCV 90.5 (84.0-98.0) fL MCH 29.6 (28.2-33.3) pg MCHC 32.7 (31.7-36.0) g/dL RDW 13.8 (11.2-14.1) % Plt Count 220 (150-350) K/uL Neut % (Auto) 58.6 (45.0-80.0) % Lymph % (Auto) 28.1 (10.0-50.0) % [place] % (Auto) 10.0 (2.0-14.0) % Eos % (Auto) 2.4 (0.0-5.0) % Baso % (Auto) 0.9 (0.0-2.0) % Neut # (Auto) 2.69 (1.40-7.00) K/uL Lymph # (Auto) 1.29 (0.50-3.50) K/uL [place] # (Auto) 0.46 (0.00-1.00) K/uL Eos # (Auto) 0.11 (0.00-0.50) K/uL Baso # (Auto) 0.04 (0.00-0.20) K/uL Sodium 139 (136-145) mmol/L Potassium 3.7 (3.5-5.1) mmol/L Chloride 104 (98-107) mmol/L Carbon Dioxide 30.5 (21.0-32.0) mmol/L BUN 8 (7-18) mg/dL Creatinine 0.72 (0.51-1.17) mg/dL Est Cr Clr Drug Dosing 65.05 mL/min Estimated GFR (MDRD) > 60 mL/min Glucose 97 (74-106) mg/dL Calcium 8.5 (8.5-10.1) mg/dL Total Bilirubin 0.2 (0.2-1.0) mg/dL AST 16 (15-37) U/L ALT 29 (12-78) U/L Alkaline Phosphatase 91 (46-116) IU/L C-Reactive Protein 3.8 H (<=0.9) mg/dL Total Protein 6.2 L (6.4-8.2) g/dL Albumin 2.9 L (3.4-5.0) g/dL Med Orders - Current: Current Medications Discontinued Medications Acetaminophen (Tylenol) 650 mg PO Q4H PRN PRN Reason: Pain Last Admin: 12/04/18 03:12 Dose: 650 mg Amlodipine Besylate (Norvasc) 5 mg PO DAILY [facility] Last Admin: 12/03/18 08:23 Dose: Not Given Amlodipine Besylate (Norvasc) 5 mg PO DAILY [facility] Last Admin: 12/05/18 07:33 Dose: 5 mg Benazepril HCl (Lotensin) 10 mg PO DAILY [facility] Last Admin: 12/03/18 08:23 Dose: Not Given Benazepril HCl (Lotensin) 10 mg PO DAILY [facility] Last Admin: 12/05/18 07:33 Dose: 10 mg Enoxaparin Sodium (Lovenox) 30 mg SUBCUT DAILY [facility] Sodium Chloride (Normal Saline) 1,000 mls @ 100 mls/hr IV ASDIRECTED [facility] Last Admin: 12/04/18 03:02 Dose: 100 mls/hr Ciprofloxacin/Dextrose 400 mg/ (Premix) 200 mls @ 200 mls/hr IV Q12H [facility] Last Admin: 12/05/18 01:59 Dose: 200 mls/hr Metronidazole 500 mg/ Premix 100 mls @ 100 mls/hr IV Q8H [facility] Last Admin: 12/05/18 12:07 Dose: 100 mls/hr Iopamidol (Isovue-300 (61%)) 100 ml IVPUSH ONETIME ONE Stop: 12/02/18 12:01 Last Admin: 12/02/18 12:36 Dose: 100 ml Ketorolac Tromethamine (Toradol) 15 mg IVPUSH Q6H PRN PRN Reason: Pain Stop: 12/07/18 17:06 Non-Formulary Medication (Amlodipine/Benazepril [Lotrel 5-10 Mg]) 1 tab PO DAILY [facility] Non-Formulary Medication (Pregabalin [Lyrica]) 100 mg PO TID [facility] Non-Formulary Medication (Venlafaxine [Effexor]) 300 mg PO DAILY [facility] Ondansetron HCl (Zofran) 4 mg IVPUSH Q6H PRN PRN Reason: Nausea/Vomiting Last Admin: 12/02/18 12:58 Dose: 4 mg Pregabalin (Lyrica) 25 mg PO TID [facility] Last Admin: 12/05/18 12:07 Dose: 25 mg Pregabalin (Lyrica) 75 mg PO TID [facility] Last Admin: 12/05/18 12:07 Dose: 75 mg Senna/Docusate Sodium (Senna Plus) 3 tab PO BEDTIME [facility] Senna/Docusate Sodium (Senna Plus) 2 tab PO BEDTIME [facility] Last Admin: 12/04/18 19:40 Dose: 2 tab Sodium Chloride (Saline Flush) 10 ml FLUSH ASDIRECTED PRN PRN Reason: Keep Vein Open Last Admin: 12/05/18 12:07 Dose: 10 ml Tizanidine HCl (Zanaflex) 4 mg PO BEDTIME [facility] Last Admin: 12/04/18 19:40 Dose: 4 mg Venlafaxine HCl (Effexor Xr) 300 mg PO DAILY [facility] Last Admin: 12/05/18 07:32 Dose: 300 mg - Exam General: Alert, Cooperative, No Acute Distress HEENT: Mucous Membr. Moist/[place] Neck: Trachea Midline, No JVD Lungs: Clear to Auscultation, Normal Respiratory Effort Cardiovascular: Regular Rate, Regular Rhythm GI/Abdominal Exam: Normal Bowel Sounds, Soft, No Distention, Tender (mild LLQ) (Female) Exam: Deferred Back Exam: Normal Inspection Extremities: Normal Inspection, Non-Tender, No Pedal Edema Skin: Warm, Dry, Intact Neurological: No New Focal Deficit Psy/Mental Status: Alert, Normal Affect, Normal Mood - Problem List & Annotations (1) Adnexal cyst SNOMED Code(s): 95735732679259 Code(s): N94.9 - UNSP COND ASSOC W FEMALE GENITAL ORGANS AND MENSTRUAL CYCLE Status: Acute Priority: High (2) Diverticulitis large intestine SNOMED Code(s): 1124687 Code(s): K57.32 - DVTRCLI OF LG INT W/O PERFORATION OR ABSCESS W/O BLEEDING Status: Acute Qualifiers: Diverticulitis bleeding: without bleeding Diverticulitis complication: unspecified complication status Qualified Code(s): K57.32 - Diverticulitis of large intestine without perforation or abscess without bleeding (3) Diverticulosis of colon SNOMED Code(s): 516152366, 121760617 Code(s): K57.30 - DVRTCLOS OF LG INT W/O PERFORATION OR ABSCESS W/O BLEEDING Status: Acute (4) Orthostatic hypotension SNOMED Code(s): 45174889 Code(s): I95.1 - ORTHOSTATIC HYPOTENSION Status: Acute (5) Bladder muscle dysfunction - overactive SNOMED Code(s): 317513481 Code(s): N32.81 - OVERACTIVE BLADDER Status: Chronic (6) Chronic pain syndrome SNOMED Code(s): 330691284 Code(s): G89.4 - CHRONIC PAIN SYNDROME Status: Chronic (7) HTN, Essential hypertension SNOMED Code(s): 01417478 Code(s): I10 - ESSENTIAL (PRIMARY) HYPERTENSION Status: Chronic (8) Mild depression SNOMED Code(s): 515585323 Code(s): F32.0 - MAJOR DEPRESSIVE DISORDER, SINGLE EPISODE, MILD Status: Chronic (9) Multiple sclerosis SNOMED Code(s): 53303300 Code(s): G35 - MULTIPLE SCLEROSIS Status: Chronic Priority: Low - Problem List Review Problem List Initiated/Reviewed/Updated: Yes - My Orders Last 24 Hours: My Active Orders 12/05/18 12:53 Discontinue Saline Lock [Peripheral IV Discontinue] [OM.PC] Routine 12/05/18 12:57 Ready for Discharge [RC] PER UNIT ROUTINE - Plan Plan:: 12/02/2018 Patient is admitted to inpatient services to Dr Bates. CT scan of the abd/ pelvis done, stat read pending. started on IV Cipro and Flagyl. Labs reviewed. Patient agreed to be hospitalized in [place]. recheck labs in the am. Patient requires inpatient 3 day stay due to leukocytosis and elevated CRP. Laisha Quiroz,GERIATRIC NURSE PRACTITIONER 12/03/18 Paulo Guillen MD The pain is better today. Continue IV antibiotics, IV fluids, and pelvic ultrasound tomorrow. 12/04/18 Paulo Guillen MD Continues to improve. No bm yet. Advance diet, continue IV antibiotics. 12/05/18 Paulo Guillen MD Continues to improve. +bm. Stable for discharge and follow up in Clinic.
--- NOTE | 2018-12-05 16:32 | PCM.DCSUM1 ---
Discharge Summary - Hospital Course Diagnosis: Stroke: No - Discharge Data Discharge Date: 12/05/18 Discharge Disposition: Home, Self-Care 01 Condition: Good - Discharge Diagnosis/Problem(s) (1) Adnexal cyst SNOMED Code(s): 68933327730883 ICD Code: N94.9 - UNSP COND ASSOC W FEMALE GENITAL ORGANS AND MENSTRUAL CYCLE Status: Acute Priority: High (2) Diverticulitis large intestine SNOMED Code(s): 1402564 ICD Code: K57.32 - DVTRCLI OF LG INT W/O PERFORATION OR ABSCESS W/O BLEEDING Status: Acute Qualifiers: Diverticulitis bleeding: without bleeding Diverticulitis complication: unspecified complication status Qualified Code(s): K57.32 - Diverticulitis of large intestine without perforation or abscess without bleeding (3) Diverticulosis of colon SNOMED Code(s): 004908041, 966619785 ICD Code: K57.30 - DVRTCLOS OF LG INT W/O PERFORATION OR ABSCESS W/O BLEEDING Status: Acute (4) Orthostatic hypotension SNOMED Code(s): 80050147 ICD Code: I95.1 - ORTHOSTATIC HYPOTENSION Status: Acute (5) Bladder muscle dysfunction - overactive SNOMED Code(s): 641279362 ICD Code: N32.81 - OVERACTIVE BLADDER Status: Chronic (6) Chronic pain syndrome SNOMED Code(s): 887962378 ICD Code: G89.4 - CHRONIC PAIN SYNDROME Status: Chronic (7) HTN, Essential hypertension SNOMED Code(s): 65244046 ICD Code: I10 - ESSENTIAL (PRIMARY) HYPERTENSION Status: Chronic (8) Mild depression SNOMED Code(s): 427404582 ICD Code: F32.0 - MAJOR DEPRESSIVE DISORDER, SINGLE EPISODE, MILD Status: Chronic (9) Multiple sclerosis SNOMED Code(s): 72175477 ICD Code: G35 - MULTIPLE SCLEROSIS Status: Chronic Priority: Low - Patient Instructions Diet: GI Soft/Low Residue/Low Fiber (for 1-2 weeks) Activity: As Tolerated Driving: Do Not Drive Showering/Bathing: May Shower Other/Special Instructions: Make an appointment at [facility] for next week with Laisha. - Discharge Plan *PRESCRIPTION DRUG MONITORING PROGRAM REVIEWED*: Not Applicable *COPY OF PRESCRIPTION DRUG MONITORING REPORT IN PATIENT ROBERT: Not Applicable Prescriptions/Med Rec: Ciprofloxacin HCl [Cipro] 500 mg PO BID #14 tablet metroNIDAZOLE [Metronidazole] 500 mg PO TID #21 tablet Home Medications: Home Meds Pregabalin [Lyrica] 100 mg PO TID 11/05/13 [History] amLODIPine/Benazepril [Lotrel 5-10 MG] 1 tab PO DAILY 11/05/13 [History] tiZANidine [Zanaflex] 4 mg PO BEDTIME 11/05/13 [History] Celecoxib [Celebrex] 200 mg PO DAILY PRN 12/29/13 [History] Cholecalciferol (Vitamin D3) [Vitamin D3] 1,000 units PO DAILY 12/29/13 [History ] Modafinil [Provigil] 100 mg PO DAILY PRN 12/29/13 [History] Vitamin B Complex 1 cap PO DAILY 08/24/16 [History] Montelukast [Singulair] 10 mg PO BEDTIME tablet 08/25/17 [Rx] EPINEPHrine [Epipen] 1 unit IM ASDIRECTED PRN 12/02/18 [History] Venlafaxine [Effexor XR] 300 mg PO DAILY 12/02/18 [History] Ciprofloxacin HCl [Cipro] 500 mg PO BID #14 tablet 12/05/18 [Rx] metroNIDAZOLE [Metronidazole] 500 mg PO TID #21 tablet 12/05/18 [Rx] Oxygen Therapy Mode: Room Air Patient Handouts: Diverticulitis, Metronidazole injection, Ciprofloxacin injection - Discharge Summary/Plan Comment DC Time >30 min.: No - Patient Data Vitals - Most Recent: Last Vital Signs Temp 98.9 F 12/05/18 12:00 Pulse 79 12/05/18 12:00 Resp 20 12/05/18 12:00 BP 183/92 H 12/05/18 12:00 Pulse Ox 96 12/05/18 12:00 Weight - Most Recent: 170 lb I&O - Last 24 hours: Intake & Output 12/05/18 12/05/18 12/05/18 06:59 14:59 22:59 Intake Total 240 Output Total 550 Balance -550 240 Lab Results - Last 24 hrs: Laboratory Results - last 24 hr 12/05/18 12/05/18 Range/Units 07:00 07:00 WBC 4.6 (4.0-10.2) K/uL RBC 3.89 (3.77-5.09) M/uL Hgb 11.5 L (11.7-15.5) g/dL Hct 35.2 (34.0-46.0) % MCV 90.5 (84.0-98.0) fL MCH 29.6 (28.2-33.3) pg MCHC 32.7 (31.7-36.0) g/dL RDW 13.8 (11.2-14.1) % Plt Count 220 (150-350) K/uL Neut % (Auto) 58.6 (45.0-80.0) % Lymph % (Auto) 28.1 (10.0-50.0) % [place] % (Auto) 10.0 (2.0-14.0) % Eos % (Auto) 2.4 (0.0-5.0) % Baso % (Auto) 0.9 (0.0-2.0) % Neut # (Auto) 2.69 (1.40-7.00) K/uL Lymph # (Auto) 1.29 (0.50-3.50) K/uL [place] # (Auto) 0.46 (0.00-1.00) K/uL Eos # (Auto) 0.11 (0.00-0.50) K/uL Baso # (Auto) 0.04 (0.00-0.20) K/uL Sodium 139 (136-145) mmol/L Potassium 3.7 (3.5-5.1) mmol/L Chloride 104 (98-107) mmol/L Carbon Dioxide 30.5 (21.0-32.0) mmol/L BUN 8 (7-18) mg/dL Creatinine 0.72 (0.51-1.17) mg/dL Est Cr Clr Drug Dosing 65.05 mL/min Estimated GFR (MDRD) > 60 mL/min Glucose 97 (74-106) mg/dL Calcium 8.5 (8.5-10.1) mg/dL Total Bilirubin 0.2 (0.2-1.0) mg/dL AST 16 (15-37) U/L ALT 29 (12-78) U/L Alkaline Phosphatase 91 (46-116) IU/L C-Reactive Protein 3.8 H (<=0.9) mg/dL Total Protein 6.2 L (6.4-8.2) g/dL Albumin 2.9 L (3.4-5.0) g/dL Med Orders - Current: Current Medications Discontinued Medications Acetaminophen (Tylenol) 650 mg PO Q4H PRN PRN Reason: Pain Last Admin: 12/04/18 03:12 Dose: 650 mg Amlodipine Besylate (Norvasc) 5 mg PO DAILY [facility] Last Admin: 12/03/18 08:23 Dose: Not Given Amlodipine Besylate (Norvasc) 5 mg PO DAILY [facility] Last Admin: 12/05/18 07:33 Dose: 5 mg Benazepril HCl (Lotensin) 10 mg PO DAILY [facility] Last Admin: 12/03/18 08:23 Dose: Not Given Benazepril HCl (Lotensin) 10 mg PO DAILY [facility] Last Admin: 12/05/18 07:33 Dose: 10 mg Enoxaparin Sodium (Lovenox) 30 mg SUBCUT DAILY [facility] Sodium Chloride (Normal Saline) 1,000 mls @ 100 mls/hr IV ASDIRECTED [facility] Last Admin: 12/04/18 03:02 Dose: 100 mls/hr Ciprofloxacin/Dextrose 400 mg/ (Premix) 200 mls @ 200 mls/hr IV Q12H [facility] Last Admin: 12/05/18 01:59 Dose: 200 mls/hr Metronidazole 500 mg/ Premix 100 mls @ 100 mls/hr IV Q8H [facility] Last Admin: 12/05/18 12:07 Dose: 100 mls/hr Iopamidol (Isovue-300 (61%)) 100 ml IVPUSH ONETIME ONE Stop: 12/02/18 12:01 Last Admin: 12/02/18 12:36 Dose: 100 ml Ketorolac Tromethamine (Toradol) 15 mg IVPUSH Q6H PRN PRN Reason: Pain Stop: 12/07/18 17:06 Non-Formulary Medication (Amlodipine/Benazepril [Lotrel 5-10 Mg]) 1 tab PO DAILY [facility] Non-Formulary Medication (Pregabalin [Lyrica]) 100 mg PO TID [facility] Non-Formulary Medication (Venlafaxine [Effexor]) 300 mg PO DAILY [facility] Ondansetron HCl (Zofran) 4 mg IVPUSH Q6H PRN PRN Reason: Nausea/Vomiting Last Admin: 12/02/18 12:58 Dose: 4 mg Pregabalin (Lyrica) 25 mg PO TID [facility] Last Admin: 12/05/18 12:07 Dose: 25 mg Pregabalin (Lyrica) 75 mg PO TID [facility] Last Admin: 12/05/18 12:07 Dose: 75 mg Senna/Docusate Sodium (Senna Plus) 3 tab PO BEDTIME [facility] Senna/Docusate Sodium (Senna Plus) 2 tab PO BEDTIME [facility] Last Admin: 12/04/18 19:40 Dose: 2 tab Sodium Chloride (Saline Flush) 10 ml FLUSH ASDIRECTED PRN PRN Reason: Keep Vein Open Last Admin: 12/05/18 12:07 Dose: 10 ml Tizanidine HCl (Zanaflex) 4 mg PO BEDTIME [facility] Last Admin: 12/04/18 19:40 Dose: 4 mg Venlafaxine HCl (Effexor Xr) 300 mg PO DAILY [facility] Last Admin: 12/05/18 07:32 Dose: 300 mg
== END 2018-12-05 14:05 | disposition home or self-care (01) | DRG 392 ==
LOC: LL.DI 10:24 → LL.MS 11:31 → UNDOADMIN 11:31 → LL.MS 11:41
PROVIDERS: ADMIT Nurse Practitioner Family; ATTEND Family Medicine
DX: K57.32 Diverticulitis of large intestine without perforation or abscess without bleeding (principal); N83.8 Other noninflammatory disorders of ovary, fallopian tube and broad ligament; I95.1 Orthostatic hypotension; N32.81 Overactive bladder; G89.4 Chronic pain syndrome; I10 Essential (primary) hypertension; F32.9 Major depressive disorder, single episode, unspecified; G35 Multiple sclerosis; K59.00 Constipation, unspecified; M19.90 Unspecified osteoarthritis, unspecified site; Z90.710 Acquired absence of both cervix and uterus; Z79.899 Other long term (current) drug therapy; Z88.8 Allergy status to other drugs, medicaments and biological substances; Z88.2 Allergy status to sulfonamides; Z88.1 Allergy status to other antibiotic agents
CPT/HCPCS: 36415; 74019; 74177; 76830; 76856; 80053; 85025; 86140; A9270-GY; J0744; J2405; J3490; J7030; Q9967

== ENCOUNTER 2021-01-17 23:10 | Emergency (ER) | payer MEDICARE, BC ==
[2021-01-17] MEDS ORDERED: Sodium Chloride 0.9% 10 ML Syringe FLUSH PRN (23:29)
--- NOTE | 2021-01-17 23:29 | EDM.PDOC ---
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 insufficiency Osteoarthritis Qualifiers: Osteoarthritis location: multiple joints Osteoarthritis type: primary Qualified Code(s): M89.49 - Other hypertrophic osteoarthropathy, multiple sites - Discharge Information *PRESCRIPTION DRUG MONITORING PROGRAM REVIEWED*: Not Applicable *COPY OF PRESCRIPTION DRUG MONITORING REPORT IN PATIENT ROBERT: Not Applicable Referrals: Laisha Quiroz NP [Primary Care Provider] - Forms: ED Department Discharge Additional Instructions: 1. Followup with your regular provider in 1-2 days as directed for reevaluation and recommended repeat CBC, basic metabolic panel, and lactic acid level. Bring these discharge instructions with you to that visit. 2. Avoid alcohol use secondary to your current medical therapy. 3. Strict fall and injury precautions as discussed 4. Encourage oral fluids as discussed 5. Immediately after this visit verify that your cellular telephone's voicemail has been activated and is empty. Also verify that your home telephone's answering machine is operating properly and has space to receive messages. Note that it is sometimes necessary for us to be able to contact you at a later date to discuss your medical care. 6. Please remember that we are ALWAYS here for you and want to answer any questions you may have. Feel free to call the hospital any time and we call you back GER. Sepsis Event Note (ED) - Evaluation Sepsis Screening Result: No Definite Risk - Focused Exam Vital Signs: Vital Signs Pulse Resp BP Pulse Ox 01/18/21 01:04 62 16 118/78 97 - Problem List & Annotations (1) Hypotension, Low blood pressure SNOMED Code(s): 70829660 Code(s): I95.9 - HYPOTENSION, UNSPECIFIED Status: Acute Priority: High Onset Date: 01/17/21 Annotation/Comment:: Resolved prior to arrival to this facility with treatment by paramedics and emergency room physician in her home as above. Symptoms similar to previous MS attacks and also likely secondary to concomitant use of alcohol and her MS medications. She was strongly encouraged to decrease and/or discontinue her alcohol intake and not take this concurrently with her current medications. Fall/injury precautions were discussed. Close follow-up by her regular provider. No chest pain, anginal complaints, etc. with negative work-up as above. (2) Multiple sclerosis SNOMED Code(s): 59565965 Code(s): G35 - MULTIPLE SCLEROSIS Status: Chronic Priority: High Annotation/Comment:: Otherwise stable by history with patient not currently needing a walker, etc. No evidence of CVA, etc. (3) Elevated lactic acid level SNOMED Code(s): 7649434 Code(s): R79.89 - OTHER SPECIFIED ABNORMAL FINDINGS OF BLOOD CHEMISTRY Status: Acute Priority: High Onset Date: 01/18/21 Annotation/Comment:: Patient is afebrile with no leukocytosis or evidence of sepsis. IV fluids given prior to arrival as above. Close follow-up by regular provider as per discharge instructions. No indication for admission or IV antibiotic therapy at this time. (4) Osteoarthritis SNOMED Code(s): 983580448 Code(s): M19.90 - UNSPECIFIED OSTEOARTHRITIS, UNSPECIFIED SITE Status: Chronic Priority: Medium Annotation/Comment:: Stable by history Qualifiers: Osteoarthritis location: multiple joints Osteoarthritis type: primary Qualified Code(s): M89.49 - Other hypertrophic osteoarthropathy, multiple sites (5) Peptic reflux disease SNOMED Code(s): 164254927 Code(s): K21.9 - GASTRO-ESOPHAGEAL REFLUX DISEASE WITHOUT ESOPHAGITIS Status: Chronic Priority: Medium Annotation/Comment:: Stable by history (6) Renal insufficiency SNOMED Code(s): 865930517, 860915017 Code(s): N28.9 - DISORDER OF KIDNEY AND URETER, UNSPECIFIED Status: Acute Priority: Medium Onset Date: 01/18/21 Annotation/Comment:: Newly diagnosed. Close follow-up by regular provider as above. (7) HTN, Essential hypertension SNOMED Code(s): 32164137 Code(s): I10 - ESSENTIAL (PRIMARY) HYPERTENSION Status: Chronic Priority: Medium Annotation/Comment:: Previously stable by history. - Problem List Review Problem List Initiated/Reviewed/Updated: Yes - My Orders Last 24 Hours: My Active Orders 01/17/21 23:29 Chest 1V Frontal [CR] Stat Obtain Past Medical Record [OM.PC] Urgent Peripheral IV Insertion Adult [OM.PC] Stat Resuscitation Status Stat 01/18/21 00:17 CULTURE URINE [RM] Routine - Assessment/Plan Last 24 Hours: My Active Orders 01/17/21 23:29 Chest 1V Frontal [CR] Stat Obtain Past Medical Record [OM.PC] Urgent Peripheral IV Insertion Adult [OM.PC] Stat Resuscitation Status Stat 01/18/21 00:17 CULTURE URINE [RM] Routine Assessment:: As above Plan: As above. Extensive precautions were given to the patient and her , who are in agreement with the treatment plan. See Patient Instructions for further treatment and plan.
[2021-01-18 00:17] LABS: PTT,PARTIAL THROMBOPLSTIN TIME 25.2 SEC (24.5-32.8)
[2021-01-18 00:32] LABS: BARBITURATE SCREEN,URINE NEGATIVE (NEGATIVE); BENZODIAZEPINES SCREEN,URINE NEGATIVE (NEGATIVE); EDDP,URINE SCREEN NEGATIVE (NEGATIVE); TCA SCREEN,URINE NEGATIVE (NEGATIVE); THC SCREEN,URINE 50 NG/ML NEGATIVE (NEGATIVE)
[2021-01-18 01:05] VITALS: BP 118/78; PULSE 62
== END 2021-01-18 01:15 | disposition home or self-care (01) ==
LOC: LL.ED 23:10
DX: I95.9 Hypotension, unspecified (principal); I10 Essential (primary) hypertension; G35 Multiple sclerosis; K21.9 Gastro-esophageal reflux disease without esophagitis; R74.01 Elevation of levels of liver transaminase levels; N28.9 Disorder of kidney and ureter, unspecified; R74.02 Elevation of levels of lactic acid dehydrogenase [LDH]; M89.49 Other hypertrophic osteoarthropathy, multiple sites; E66.9 Obesity, unspecified; Z68.30 Body mass index [BMI] 30.0-30.9, adult; Z87.891 Personal history of nicotine dependence; Z88.8 Allergy status to other drugs, medicaments and biological substances; Z88.2 Allergy status to sulfonamides; Z88.1 Allergy status to other antibiotic agents; Z79.899 Other long term (current) drug therapy; Z23 Encounter for immunization
CPT/HCPCS: 36415; 71045; 80053; 80305-QW; 80307; 81001; 82550; 82553; 83605; 83735; 83880; 84443; 84484; 84550; 85025; 85379; 85610; 85730; 87086; 93005; 93010; 99284; 99285-25

== ENCOUNTER 2021-04-03 18:24 | Emergency (ER) | payer MEDICARE, BC ==
[2021-04-03] MEDS ORDERED: Ketorolac 30 MG/ML SDV IM ONE (18:38)
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
[2021-04-03 19:43] VITALS: BP 176/81; PULSE 70
== END 2021-04-03 19:25 | disposition home or self-care (01) ==
LOC: LL.ED 18:24
DX: S82.831A Other fracture of upper and lower end of right fibula, initial encounter for closed fracture (principal); S90.111A Contusion of right great toe without damage to nail, initial encounter; S50.811A Abrasion of right forearm, initial encounter; S80.212A Abrasion, left knee, initial encounter; S80.812A Abrasion, left lower leg, initial encounter; Z88.8 Allergy status to other drugs, medicaments and biological substances; Z88.2 Allergy status to sulfonamides; Z88.1 Allergy status to other antibiotic agents; I10 Essential (primary) hypertension; Z79.899 Other long term (current) drug therapy; W10.9XXA Fall (on) (from) unspecified stairs and steps, initial encounter
CPT/HCPCS: 73610; 96372; 99283; J1885; 99284

== ENCOUNTER 2022-03-22 14:09 | Emergency (ER) | payer BC, MEDICARE ==
[2022-03-22 14:19] VITALS: BP 152/80; PULSE 80
[2022-03-22] MEDS ORDERED: methylPREDNISolone Sodium Succinate 125 MG/2 ML SDV IM ONE (14:56)
== END 2022-03-22 15:05 | disposition home or self-care (01) ==
LOC: LL.ED 14:09
DX: M25.512 Pain in left shoulder (principal); I10 Essential (primary) hypertension; E66.9 Obesity, unspecified; Z68.30 Body mass index [BMI] 30.0-30.9, adult; Z90.49 Acquired absence of other specified parts of digestive tract; Z90.710 Acquired absence of both cervix and uterus; Z88.8 Allergy status to other drugs, medicaments and biological substances; Z88.2 Allergy status to sulfonamides; Z79.899 Other long term (current) drug therapy
CPT/HCPCS: 96372; 99283; 99284; J2930

== ENCOUNTER 2024-09-07 09:24 | Emergency (ER) | payer MEDICARE ==
[2024-09-07 13:54] VITALS: BP 138/75; PULSE 71
== END 2024-09-07 10:30 | disposition home or self-care (01) ==
LOC: LL.ED 09:24
DX: S93.491A Sprain of other ligament of right ankle, initial encounter (principal); I10 Essential (primary) hypertension; E66.9 Obesity, unspecified; Z90.710 Acquired absence of both cervix and uterus; Z90.49 Acquired absence of other specified parts of digestive tract; Z88.2 Allergy status to sulfonamides; Z88.1 Allergy status to other antibiotic agents; Z88.8 Allergy status to other drugs, medicaments and biological substances; Z79.51 Long term (current) use of inhaled steroids; Z79.899 Other long term (current) drug therapy; X58.XXXA Exposure to other specified factors, initial encounter
CPT/HCPCS: 73600-RT; 99283

== ENCOUNTER 2025-02-08 13:46 | Emergency (ER) | payer MEDICARE ==
[2025-02-08 14:17] LABS: BASOPHILS ABSOLUTE AUTO 0.04 K/uL (0.00-0.20); BASOPHILS PERCENT AUTO 0.6 % (0.0-2.0); EOSINOPHILS ABSOLUTE AUTO 0.03 K/uL (0.00-0.50); EOSINOPHILS PERCENT AUTO 0.4 % (0.0-5.0); HEMATOCRIT 39.8 % (34.0-46.0); IMMATURE GRAN ABSOLUTE AUTO 0.01 10^3/uL (0.00-0.04); IMMATURE GRAN PERCENT AUTO 0.1 % (0.0-0.4); LYMPHOCYTES PERCENT AUTO 23.8 % (10.0-50.0); MEAN CORPUSCULAR HEMOGLOBIN 31.5 pg (28.2-33.3); MEAN CORPUSCULAR HGB CONC 35.2 g/dL (31.7-36.0); MEAN CORPUSCULAR VOLUME 89.4 fL (84.0-98.0); MONOCYTES ABSOLUTE AUTO 0.47 K/uL (0.00-1.00); NEUTROPHILS ABSOLUTE AUTO 4.57 K/uL (1.40-7.00); NEUTROPHILS PERCENT AUTO 68.1 % (45.0-80.0); PLATELET COUNT,PLT 303 K/uL (150-350); RED BLOOD CELL COUNT 4.45 M/uL (3.77-5.09); WHITE BLOOD CELL COUNT,WBC 6.7 K/uL (4.0-10.2)
[2025-02-08 14:37] LABS: ALANINE AMINOTRANSFERASE,ALT 42 U/L (12-78); ALBUMIN 3.9 g/dL (3.4-5.0); ALKALINE PHOSPHATASE 107 IU/L (46-116); ASPARTATE AMNIOTRANSFERASE,AST 20 U/L (15-37); BILIRUBIN TOTAL 0.6 mg/dL (0.2-1.0); BLOOD UREA NITROGEN,BUN 15 mg/dL (7-18); C-REACTIVE PROTEIN 0.71 mg/dL (0.05-0.30); CALCIUM 9.2 mg/dL (8.5-10.1); CARBON DIOXIDE,CO2 26.4 mmol/L (21.0-32.0); CHLORIDE,CL 101 mmol/L (98-107); CREATININE 0.99 mg/dL (0.51-1.17); GLUCOSE RANDOM 132 mg/dL (70-99); MAGNESIUM 1.8 mg/dL (1.8-2.4); POTASSIUM,K 3.4 mmol/L (3.5-5.1); PROTEIN TOTAL,TP 7.6 g/dL (6.4-8.2); SODIUM,NA 136 mmol/L (136-145)
[2025-02-08 14:46] LABS: ESTIMATED GFR 59 mL/min (>=60)
[2025-02-08] MEDS: Ondansetron 4 MG Tab.DIS PO ONE (15:34)
[2025-02-08 16:17] VITALS: BP 148/89; PULSE 76
== END 2025-02-08 16:05 | disposition home or self-care (01) ==
LOC: LL.ED 13:46
DX: R11.0 Nausea (principal); I10 Essential (primary) hypertension; K21.9 Gastro-esophageal reflux disease without esophagitis; Z88.4 Allergy status to anesthetic agent; Z88.8 Allergy status to other drugs, medicaments and biological substances; Z88.2 Allergy status to sulfonamides; Z79.899 Other long term (current) drug therapy; Z90.49 Acquired absence of other specified parts of digestive tract
CPT/HCPCS: 36415; 74019; 80053; 83735; 85025; 86140; 87428-QW; 99284; A9270-GY